=== PATIENT | female | born 1995 | race Caucasian/White ===

== ENCOUNTER 2019-08-12 10:45 | Emergency (ER) | payer OTHER ==
--- NOTE | 2019-08-12 11:01 | EDM.PDOC ---
ED HPI GENERAL MEDICAL PROBLEM - General Chief Complaint: Genitourinary Problem Stated Complaint: POSSIBLE KIDNEY STONE SENT BY YANN Time Seen by Provider: 08/12/19 10:58 Source of Information: Reports: Patient, Old Records, RN Notes Reviewed History Limitations: Reports: No Limitations - History of Present Illness INITIAL COMMENTS - FREE TEXT/NARRATIVE: Patient is a 23-year-old female who presents to the ED today for the evaluation of a left-sided kidney stone. The patient was evaluated in this ER on 08/10/[address] Lawton, and was clinically diagnosed with kidney stones, as she has had similar-like symptoms 1 year prior. The patient states that he sent her home with some pain and antinausea medications, and told her to follow- up with the clinic if not much better. She went to the [facility] her clinic today , as she was not feeling much better. The patient did have some labs done, CBC and CMP and this demonstrated a modestly elevated white count at 12.1 with 77.9 % neutrophils, and an essentially within normal limits metabolic panel, with the exception of her creatinine being elevated at 1.5. The patient states that she is having increased left-sided pain, that is a constant pressure and then has stabbing component to it from time to time. She does not note that she has had an actual fever, but states that she has had hot and cold flashes. She denies any vomiting, but states she is a little bit nauseous. She further denies any dysuria, urinary frequency or urgency, she states she has not been drinking much or eating much as she has not had much of an appetite. Her hCG test done on 08/10 was negative, and she further denies any chance of . The patient states that she took her pain medication this morning, but did not take her nausea medication. She states that the pain medication did not help much. Left Back Pain Score (Numeric/FACES): 9 - Related Data Allergies Allergy/AdvReac Type Severity Reaction Status Date / Time No Known Allergies Allergy Verified 08/10/19 15:44 Home Meds: Home Meds Levothyroxine 150 mcg PO DAILY 08/13/18 [History] Ondansetron [Zofran ODT] 4 mg PO Q6H PRN #12 tab.dis 08/13/18 [Rx] Sertraline [Zoloft] 100 mg PO DAILY 08/13/18 [History] Acetaminophen/oxyCODONE [Percocet 325-5 MG] 5 - 325 mg PO Q4H PRN 08/10/19 [ History] Tamsulosin HCl [Flomax] 0.4 mg PO Q24H #6 cap.er.24h 08/10/19 [Rx] Past Medical History - Past Health History Medical/Surgical History: Denies Medical/Surgical History HEENT History: Reports: Impaired Vision Other HEENT History: wears eyeglasses. Genitourinary History: Reports: Renal Calculus, Other (See Below) Other Genitourinary History: control implant. Psychiatric History: Reports: Anxiety Endocrine/Metabolic History: Reports: Hypothyroidism Dermatologic History: Reports: Psoriasis - Infectious Disease History Infectious Disease History: Reports: Chicken Pox - Past Surgical History HEENT Surgical History: Reports: Adenoidectomy, Tonsillectomy Social & Family History - Tobacco Use Smoking Status *Q: Never Smoker - Caffeine Use Caffeine Use: Reports: Coffee - Recreational Drug Use Recreational Drug Use: No ED ROS GENERAL - Review of Systems Review Of Systems: See Below Constitutional: Reports: Decreased Appetite. Denies: Fever, Chills HEENT: Reports: No Symptoms Respiratory: Denies: Shortness of Breath Cardiovascular: Denies: Chest Pain GI/Abdominal: Reports: Decreased Appetite, Nausea. Denies: Abdominal Pain, Constipation, Diarrhea, Vomiting : Reports: Flank Pain (L). Denies: Dysuria, Frequency, Urgency Musculoskeletal: Reports: No Symptoms Skin: Reports: No Symptoms Neurological: Reports: No Symptoms Psychiatric: Reports: No Symptoms Hematologic/Lymphatic: Reports: No Symptoms Immunologic: Reports: No Symptoms ED EXAM, RENAL/ - Physical Exam Exam: See Below Exam Limited By: No Limitations General Appearance: Alert, WD/WN, No Apparent Distress (Pt appears to be in a moderate amount of pain) Throat/Mouth: Normal Inspection, Normal Lips, Normal Teeth, Normal Gums, Normal Oropharynx, Normal Voice, No Airway Compromise Head: Atraumatic, Normocephalic Neck: Normal Inspection Respiratory/Chest: No Respiratory Distress, Lungs Clear, Normal Breath Sounds, No Accessory Muscle Use, Chest Non-Tender Cardiovascular: Normal Peripheral Pulses, Regular Rate, Rhythm, No Edema, No Murmur GI/Abdominal: Normal Bowel Sounds, Soft, Non-Tender, No Distention, No Mass Back Exam: Normal Inspection, Full Range of Motion. No: CVA Tenderness (L), CVA Tenderness (R) Extremities: Normal Inspection, Normal Capillary Refill Neurological: Alert, Oriented, Normal Cognition, No Motor/Sensory Deficits Psychiatric: Normal Affect, Normal Mood Skin Exam: Warm, Dry, Intact, Normal Color, No Rash Course - Vital Signs Last Recorded V/S: Last Vital Signs Temp 97.1 F 08/12/19 11:00 Pulse 62 08/12/19 11:00 Resp 20 08/12/19 11:00 BP 133/89 08/12/19 11:00 Pulse Ox 99 08/12/19 11:00 - Orders/Labs/Meds Orders: Active Orders 24 hr Category Date Time Status Strain Urine [RC] ASDIRECTED Care 08/12/19 11:07 Active CULTURE URINE [RM] Routine Lab 08/12/19 11:35 Received Sodium Chloride 0.9% [Normal Saline] 1,000 ml Med 08/12/19 11:15 Active IV ASDIRECTED Medication Orders Sodium Chloride (Normal Saline) 1,000 mls @ 150 mls/hr IV ASDIRECTED ANGIE Last Admin: 08/12/19 11:42 Dose: 150 mls/hr Labs: Laboratory Tests 08/12/19 Range/Units 11:35 Urine Color Yellow (Yellow) Urine Appearance Clear (Clear) Urine pH 6.0 (5.0-8.0) Ur Specific [place] 1.015 (1.005-1.030) Urine Protein Negative (Negative) Urine Glucose (UA) Negative (Negative) Urine Ketones 1+ H (Negative) Urine Occult Blood 2+ H (Negative) Urine Nitrite Negative (Negative) Urine Bilirubin Negative (Negative) Urine Urobilinogen 0.2 (0.2-1.0) Ur Leukocyte Esterase Negative (Negative) Urine RBC 10-20 H (0-5) /hpf Urine WBC 0-5 (0-5) /hpf Ur Squamous Epith Cells 0-5 (0-5) /hpf Urine Bacteria Few (FEW) /hpf Urine Mucus Few (FEW) /hpf Meds: Medications Generic Name Dose Route Start Last Admin Trade Name Freq PRN Reason Stop Dose Admin Sodium Chloride 1,000 mls @ 150 mls/hr 08/12/19 11:15 08/12/19 11:42 Normal Saline IV 150 mls/hr ASDIRECTED ANGIE Administration Discontinued Medications Generic Name Dose Route Start Last Admin Trade Name Asad PRN Reason Stop Dose Admin Hydromorphone HCl 1 mg 08/12/19 11:07 08/12/19 11:43 Dilaudid IVPUSH 08/12/19 11:08 1 mg ONETIME STA Administration Hydromorphone HCl 0.5 mg 08/12/19 12:18 08/12/19 12:35 Dilaudid IVPUSH 08/12/19 12:19 0.5 mg ONETIME ONE Administration Hydromorphone HCl 0.5 mg 08/12/19 13:00 08/12/19 13:16 Dilaudid IVPUSH 08/12/19 13:01 0.5 mg ONETIME ONE Administration Sodium Chloride 1,000 mls @ 999 mls/hr 08/12/19 12:50 08/12/19 13:16 Normal Saline IV 08/12/19 13:50 999 mls/hr ONETIME ONE Administration Ondansetron HCl 4 mg 08/12/19 11:07 08/12/19 11:42 Zofran IVPUSH 08/12/19 11:08 4 mg ONETIME ONE Administration Tamsulosin HCl 0.4 mg 08/12/19 11:07 08/12/19 11:43 Flomax PO 08/12/19 11:08 0.4 mg ONETIME STA Administration - Re-Assessments/Exams Free Text/Narrative Re-Assessment/Exam: 08/12/19 11:24 Patient presents to the ED for the evaluation of a left-sided kidney stone. I do believe that she has suffered from kidney stones, I have ordered an abdominal pelvis CT without contrast, UA with culture, some IV fluids, 1 mg Dilaudid and 4 mg Zofran with 0.4 mg Flomax for initial management. 08/12/19 12:11 Patient was assessed at bedside again, states she is having mild amount of pain , will repeat 0.5 mg of Dilaudid, for further pain control, CT report is back and demonstrates a an obstructing proximal left ureteral stone measuring 3.4 mm. Nonobstructing calculi within both kidneys. No other additional abnormality appreciated. I did instruct the nurse to change her fluid rate to wide open, and will likely give her a second liter of fluids, as she states that she has not been eating or drinking much. 08/12/19 13:01 Patient was again reassessed at bedside, and states she is feeling a little bit more comfortable, but is complaining of quite a bit of pain yet. I did order another 0.5mg of Dilaudid for further pain management, and another liter of fluids for management. Departure - Departure Time of Disposition: 14:46 Disposition: Home, Self-Care 01 Condition: Fair Clinical Impression: Kidney stone on left side - Discharge Information *PRESCRIPTION DRUG MONITORING PROGRAM REVIEWED*: Yes *COPY OF PRESCRIPTION DRUG MONITORING REPORT IN PATIENT DI: No Instructions: Kidney Stones, [id number], Low-Purine Eating Plan Referrals: Jigna Victoria MD [Primary Care Provider] - Forms: ED Department Discharge Additional Instructions: You were evaluated in the ER today for your L flank pain. Your urinalysis did demonstrate some blood in urine, which is suggestive of a kidney stone at this time. A CT was done at this ER visit, this demonstrated a kidney stone that is 3.4mm. You have been given a strainer, please use every time you use the bathroom to make sure that the kidney stone has passed. Recommend that you increase your oral fluid intake to try to help the stone pass. You have been given a few tablets of pain medication, please take as prescribed. These medications are highly addictive, please take as few as you need to. These medications also can be somewhat constipating, recommend you take a stool softener like MiraLAX while taking these medications. You should follow-up with your regular doctor on Sunday, if your pain is not much better for a possible urology referral. Please return to the ED if your symptoms change or worsen. - My Orders Last 24 Hours: My Active Orders 08/12/19 11:07 Strain Urine [RC] ASDIRECTED 08/12/19 11:15 Sodium Chloride 0.9% [Normal Saline] 1,000 ml IV ASDIRECTED 08/12/19 11:35 CULTURE URINE [RM] Routine - Assessment/Plan Last 24 Hours: My Active Orders 08/12/19 11:07 Strain Urine [RC] ASDIRECTED 08/12/19 11:15 Sodium Chloride 0.9% [Normal Saline] 1,000 ml IV ASDIRECTED 08/12/19 11:35 CULTURE URINE [RM] Routine
[2019-08-12] MEDS ORDERED: HYDROmorphone 1 MG/ML Syringe IVPUSH STA (11:07)
[2019-08-12] MEDS ORDERED: Tamsulosin 0.4 MG Cap.ER PO STA (11:07)
[2019-08-12] MEDS ORDERED: Ondansetron 4 MG/2 ML SDV IVPUSH ONE (11:07)
[2019-08-12] MEDS ORDERED: Sodium Chloride 0.9% 1,000 ML IV SCH (11:15)
--- NOTE | 2019-08-12 11:58 | CT ---
CT abdomen and pelvis Technique: Multiple axial sections were obtained from above the dome of the diaphragm inferiorly through the pubic symphysis. Intravenous and oral contrast not utilized. Study has been performed as ureteral stone protocol. Comparison: Prior CT abdomen and pelvis exam of 08/13/18. Findings: Nonobstructing calculi are seen within both kidneys. Left ureter is mildly prominent. This finding is caused by an obstructing proximal left ureteral stone measuring 3.4 mm. No other abnormal calcifications are seen along the course of the ureters. Other findings: Visualized lung bases show nothing acute. Noncontrast appearance of the liver and spleen appear within normal limits. Gallbladder contains no calcified gallstones. Adrenal glands show no nodule. Pancreas is within normal limits. Aorta shows no aneurysm. No retroperitoneal adenopathy or mesenteric abnormalities are seen. Appendix not visualized with certainty. No free fluid or inflammatory change is seen. Bone window settings were reviewed which appear within normal limits for the patient's age. Impression: 1. Obstructing proximal left ureteral stone measuring 3.4 mm in approximate size. 2. Nonobstructing calculi within both kidneys. 3. No additional abnormality is appreciated on noncontrast CT study of the abdomen and pelvis. Diagnostic code #3 This report was dictated in [place] Standard Time
[2019-08-12] MEDS ORDERED: HYDROmorphone 0.5 MG/0.5 ML Syringe IVPUSH ONE ×2 (12:18→13:00)
[2019-08-12] MEDS ORDERED: Sodium Chloride 0.9% 1,000 ML IV ONE (12:50)
== END 2019-08-12 15:06 | disposition home or self-care (01) ==
LOC: JD.ED 10:45
DX: N20.2 Calculus of kidney with calculus of ureter (principal); E03.9 Hypothyroidism, unspecified; Z79.890 Hormone replacement therapy
CPT/HCPCS: 74176; 81001; 87086; 96361; 96374; 96375; 96376; 99284; A9270; J1170; J2405; J7040; 99283

== ENCOUNTER 2021-06-18 11:56 | Emergency (ER) | payer OTHER ==
[2021-06-18] MEDS ORDERED: Sodium Chloride 0.9% 10 ML Syringe FLUSH PRN (12:08)
--- NOTE | 2021-06-18 12:22 | EDM.PDOC ---
ED HPI GENERAL MEDICAL PROBLEM - General Chief Complaint: FIELD ACCOUNT DIRECTOR Problem Stated Complaint: 6 WEEKS PREG/BLEEDING AND CRAMPING Time Seen by Provider: 06/18/21 12:05 Source of Information: Reports: Patient, RN Notes Reviewed History Limitations: Reports: No Limitations - History of Present Illness INITIAL COMMENTS - FREE TEXT/NARRATIVE: Patient is a 25-year-old female who presents to the ER for evaluation of her vaginal bleeding/abdominal cramping in early . Patient notes that her last menstrual period was around April 19. She is supposed to see Dr. Marie on July 05 for ongoing OB management. Patient is a . Patient states that yesterday she had developed some low abdominal cramping with a slight amount of vaginal bleeding, when she wiped with the toilet paper. She put a maxi pad in her underwear, but has not soaked through 1 maxi pad yet. She also noted some mucousy type discharge. States she is having some lower abdominal cramping along with some pain in her back. She is denying any urinary symptoms or dysuria frequency urgency. She is having some slight nausea but no vomiting or diarrhea. She is denying any fevers chills, cough or shortness of breath. Lower Back Pain Score (Numeric/FACES): 6 Lower Pelvic Pain Score (Numeric/FACES): 4 - Related Data Allergies Allergy/AdvReac Type Severity Reaction Status Date / Time No Known Allergies Allergy Verified 08/10/19 15:44 Home Meds: Home Meds Levothyroxine 150 mcg PO DAILY 08/13/18 [History] Past Medical History HEENT History: Reports: Impaired Vision Other HEENT History: wears eyeglasses. Genitourinary History: Reports: Renal Calculus Other Genitourinary History: control implant. : 1 Para: 0 Psychiatric History: Reports: Anxiety Endocrine/Metabolic History: Reports: Hypothyroidism, Obesity/BMI 30+ Dermatologic History: Reports: Psoriasis - Infectious Disease History Infectious Disease History: Reports: Chicken Pox - Past Surgical History HEENT Surgical History: Reports: Adenoidectomy, Tonsillectomy Social & Family History - Tobacco Use Tobacco Use Status *Q: Never Tobacco User - Caffeine Use Caffeine Use: Reports: Coffee, Soda, Tea - Recreational Drug Use Recreational Drug Use: No ED ROS GENERAL - Review of Systems Review Of Systems: Comprehensive ROS is negative, except as noted in HPI. ED EXAM - Physical Exam Exam: See Below Exam Limited By: No Limitations General Appearance: Alert, WD/WN, No Apparent Distress Respiratory/Chest: No Respiratory Distress, Lungs Clear, Normal Breath Sounds, No Accessory Muscle Use, Chest Non-Tender Cardiovascular: Normal Peripheral Pulses, Regular Rate, Rhythm GI/Abdominal Exam: Normal Bowel Sounds, Soft, No Distention, No Mass, Tender (very slight tenderness on low pelvis) Heart Tones: Not Delta Movement: Not Appreciated Extremities: Normal Inspection, Normal Capillary Refill Neurological: Alert, Oriented, Normal Cognition, No Motor/Sensory Deficits Psychiatric: Normal Affect, Normal Mood Skin Exam: Warm, Dry, Intact, Normal Color, No Rash Course - Vital Signs Last Recorded V/S: Last Vital Signs Temp 97.3 F 06/18/21 12:13 Pulse 86 06/18/21 12:13 Resp 20 06/18/21 12:13 BP 128/87 06/18/21 12:13 Pulse Ox 100 06/18/21 12:13 - Orders/Labs/Meds Orders: Active Orders 24 hr Category Date Time Status Peripheral IV Care [RC] . DIRECTED Care 06/18/21 12:09 Ordered OB Transvaginal [US] Stat Exams 06/18/21 12:08 Ordered PATIENT RETYPE [BBK] Routine Lab 06/18/21 13:22 Ordered RHOGAM, [RHIG WORKUP, ] [BBK] Stat Lab 06/18/21 14:44 Ordered UA W/MICROSCOPIC [URIN] Stat Lab 06/18/21 12:08 Ordered Sodium Chloride 0.9% [Saline Flush] Med 06/18/21 12:08 Ordered 10 ml FLUSH ASDIRECTED PRN Peripheral IV Insertion Adult [OM.PC] Stat Oth 06/18/21 12:08 Ordered Medication Orders Sodium Chloride (Sodium Chloride 0.9% 10 Ml Syringe) 10 ml FLUSH ASDIRECTED PRN PRN Reason: Keep Vein Open Last Admin: 06/18/21 13:16 Dose: 10 ml Documented by: LUL Labs: Laboratory Tests 06/18/21 06/18/21 06/18/21 Range/Units 12:35 12:35 12:35 WBC 8.81 (3.98-10.04) K/mm3 RBC 4.60 (3.98-5.22) M/mm3 Hgb 12.7 (11.2-15.7) gm/dl Hct 39.6 (34.1-44.9) % MCV 86.1 (79.4-94.8) fl MCH 27.6 (25.6-32.2) pg MCHC 32.1 L (32.2-35.5) g/dl RDW Std Deviation 42.6 (36.4-46.3) fL Plt Count 263 (182-369) K/mm3 MPV 10.2 (9.4-12.3) fl Neut % (Auto) 65.7 (34.0-71.1) % Lymph % (Auto) 24.0 (19.3-51.7) % [place] % (Auto) 8.5 (4.7-12.5) % Eos % (Auto) 1.5 (0.7-5.8) Baso % (Auto) 0.1 (0.1-1.2) % Neut # (Auto) 5.79 (1.56-6.13) K/mm3 Lymph # (Auto) 2.11 (1.18-3.74) K/mm3 [place] # (Auto) 0.75 H (0.24-0.36) K/mm3 Eos # (Auto) 0.13 (0.04-0.36) K/mm3 Baso # (Auto) 0.01 (0.01-0.08) K/mm3 HCG, Quant 2176.0 mIU/mL Blood Type A NEGATIVE Meds: Medications Generic Name Dose Route Start Last Admin Trade Name Freq PRN Reason Stop Dose Admin Sodium Chloride 10 ml 06/18/21 12:08 06/18/21 13:16 Sodium Chloride 0.9% 10 Ml Syringe FLUSH 10 ml ASDIRECTED PRN Administration Keep Vein Open - Re-Assessments/Exams Free Text/Narrative Re-Assessment/Exam: 06/18/21 12:21 Patient presents to the ER for evaluation of her vaginal bleeding and pelvic discomfort in early . We will go ahead and get ultrasound, get some basic labs for evaluation. 06/18/21 13:59 Patient's blood type is A-, CBC is unremarkable, still awaiting hCG quantitative level. The transvaginal ultrasound demonstrates an ovoid gestational sac in the lower endometrial cavity identified with a mean sac diameter of 6 mm no yolk sac is identified at this time a fetus is not identified. The estimated ultrasound age based on the mean sac diameter is 5 weeks and 1 day. Impression states in the setting of vaginal bleeding findings could be due to impending failed first trimester continue follow-up is recommended. 06/18/21 14:52 I did discuss the ultrasound findings and the patient's blood work with Dr. Blue, FIELD ACCOUNT DIRECTOR on-call today. He does recommend giving RhoGam as the patient's blood type is A-. He does think this is very well could be an impending miscarriage, and recommends more of a watchful waiting situation to see if it tries to complete itself over the weekend he does recommend that the patient follow-up with FIELD ACCOUNT DIRECTOR Sunday or Sunday for repeat hCG and ongoing guidance. He does give strict return precautions for vaginal bleeding, which has been relayed to the patient. RhoGam work-up has been ordered. Departure - Departure Time of Disposition: 14:53 Disposition: Home, Self-Care 01 Condition: Fair Clinical Impression: Threatened miscarriage in early - Discharge Information *PRESCRIPTION DRUG MONITORING PROGRAM REVIEWED*: No *COPY OF PRESCRIPTION DRUG MONITORING REPORT IN PATIENT DI: No Instructions: Threatened Miscarriage, [id number] Referrals: Rea Marie MD [Primary Care Provider] - Forms: ED Department Discharge Additional Instructions: You were evaluated in the ER today regarding your abdominal pain/vaginal bleeding in . You did have some labs drawn, and these were within normal limits, your hCG level was 2176 , your blood type is A-. Due to your vaginal bleeding, you were given a dose of RhoGam in this ER visit. For all future pregnancies, you will need RhoGam due to your blood type. Your ultrasound demonstrated a fetus with ultrasound age at 5 weeks 1 day. With the setting of bleeding, findings are thought likely due to the possibility of an impending or threatened miscarriage. No yolk sac was identified at today's visit, and no heartbeat was identified at today's visit. Your case was discussed with Dr. Blue FIELD ACCOUNT DIRECTOR on-call, and he does recommend that you have close follow-up with your FIELD ACCOUNT DIRECTOR, Dr. Marie Sunday or Sunday for repeat hCG testing, and to monitor for increased vaginal bleeding. Recommend that you do not lift anything heavier than a gallon of milk (5 lbs), do not engage in sexual activities, try to get as much pelvic rest as possible for the next few days. Please try not to exert yourself, rest and relax, and take it easy. If you are bleeding through more than 1-2 maxi pads every couple hours, this would be cause for concern to return to the ER for immediate management. Please call Dr. Marie Sunday morning to request an appointment for ongoing management. Please return to the ED at any time if your symptoms change or worsen. Sepsis Event Note (ED) - Focused Exam Vital Signs: Vital Signs Temp Pulse Resp BP Pulse Ox 06/18/21 12:13 97.3 F 86 20 128/87 100 - My Orders Last 24 Hours: My Active Orders 06/18/21 12:08 OB Transvaginal [US] Stat UA W/MICROSCOPIC [URIN] Stat Sodium Chloride 0.9% [Saline Flush] 10 ml FLUSH ASDIRECTED PRN Peripheral IV Insertion Adult [OM.PC] Stat 06/18/21 12:09 Peripheral IV Care [RC] . DIRECTED 06/18/21 13:22 PATIENT RETYPE [BBK] Routine 06/18/21 14:44 RHOGAM, [RHIG WORKUP, ] [BBK] Stat - Assessment/Plan Last 24 Hours: My Active Orders 06/18/21 12:08 OB Transvaginal [US] Stat UA W/MICROSCOPIC [URIN] Stat Sodium Chloride 0.9% [Saline Flush] 10 ml FLUSH ASDIRECTED PRN Peripheral IV Insertion Adult [OM.PC] Stat 06/18/21 12:09 Peripheral IV Care [RC] . DIRECTED 06/18/21 13:22 PATIENT RETYPE [BBK] Routine 06/18/21 14:44 RHOGAM, [RHIG WORKUP, ] [BBK] Stat
[2021-06-18] MEDS ORDERED: Ondansetron 4 MG Tab.DIS PO ONE (15:42)
[2021-06-18] MEDS ORDERED: Ondansetron 4 MG Tab.DIS ONE (15:42)
--- NOTE | 2021-06-19 08:45 | US ---
First trimester obstetrical ultrasound: Multiple real-time images were obtained transvaginally. Comparison: No prior ultrasound is available. Minimal ovoid area is seen within the lower uterine segment measuring 6 mm in mean sac diameter which correlates to a mean gestational age of 5 weeks 1 day. No yolk sac or pole is seen. Ovaries appear within normal limits. No adnexal abnormalities are seen. Impression: 1. Findings suspicious for impending miscarriage. If patient remains symptomatic, follow-up ultrasound could then be considered. Diagnostic code #3 I agree with preliminary report from [facility], finalized on 06/19/21, 2:54 PM CDT
== END 2021-06-18 15:30 | disposition home or self-care (01) ==
LOC: JD.ED 11:56
DX: O20.0 Threatened abortion (principal); O99.281 Endocrine, nutritional and metabolic diseases complicating pregnancy, first trimester; E03.9 Hypothyroidism, unspecified; O99.211 Obesity complicating pregnancy, first trimester; Z68.41 Body mass index [BMI] 40.0-44.9, adult; Z79.899 Other long term (current) drug therapy; Z3A.01 Less than 8 weeks gestation of pregnancy
CPT/HCPCS: 36415; 76817; 76817-26; 81001; 84702; 85025; 87086; 99284-25; J2790

== ENCOUNTER 2021-10-01 04:11 | Emergency (ER) | payer OTHER ==
[2021-10-01] MEDS ORDERED: Lactated Ringers 1,000 ML IV ONE ×2 (04:41→06:07)
[2021-10-01] MEDS ORDERED: Ondansetron 4 MG/2 ML SDV IVPUSH ONE ×2 (04:41→06:25)
[2021-10-01] MEDS ORDERED: Acetaminophen 325 MG Tab PO ONE (04:42)
[2021-10-01] MEDS ORDERED: Morphine 4 MG/ML Syringe IVPUSH ONE ×2 (05:39→06:25)
== END 2021-10-01 09:30 | disposition home or self-care (01) ==
LOC: JD.ED 04:11
DX: O99.891 Other specified diseases and conditions complicating pregnancy (principal); N23 Unspecified renal colic; O99.281 Endocrine, nutritional and metabolic diseases complicating pregnancy, first trimester; E03.9 Hypothyroidism, unspecified; O99.211 Obesity complicating pregnancy, first trimester; E66.9 Obesity, unspecified; Z87.442 Personal history of urinary calculi; Z79.899 Other long term (current) drug therapy; Z3A.11 11 weeks gestation of pregnancy
CPT/HCPCS: 36415; 80053; 81001; 85025; 87086; 96374; 96375; 96376; 99284; A9270; J2270; J2405; J7120

== ENCOUNTER 2021-10-03 12:53 | Emergency (ER) | payer OTHER ==
[2021-10-03] MEDS ORDERED: HYDROmorphone 0.5 MG/0.5 ML Syringe IVPUSH ONE (15:01)
[2021-10-03] MEDS ORDERED: Metoclopramide 10 MG/2 ML SDV IVPUSH ONE (15:01)
[2021-10-03] MEDS ORDERED: Sodium Chloride 0.9% 1,000 ML IV ONE (15:14)
== END 2021-10-03 16:00 | disposition home or self-care (01) ==
LOC: JD.ED 12:53
DX: O99.891 Other specified diseases and conditions complicating pregnancy (principal); N20.0 Calculus of kidney; O99.281 Endocrine, nutritional and metabolic diseases complicating pregnancy, first trimester; E03.9 Hypothyroidism, unspecified; O99.211 Obesity complicating pregnancy, first trimester; E66.9 Obesity, unspecified; Z79.899 Other long term (current) drug therapy; Z3A.11 11 weeks gestation of pregnancy
CPT/HCPCS: 96374; 96375; 99283; J1170; J2765; J7030

== ENCOUNTER 2022-04-17 10:38 | Inpatient (IN) | payer OTHER ==
[~2022-04-17 10:38] MED LIST: Bupivacaine 0.25% 10 ML SDV ONE
[2022-04-17] MEDS ORDERED: Ondansetron 4 MG/2 ML SDV IVPUSH PRN (12:00)
[2022-04-17] MEDS ORDERED: Nalbuphine HCl 10 MG/ 1ML Amp IVPUSH PRN (12:00)
[2022-04-17] MEDS ORDERED: Ampicillin 2 GM in Sodium Chloride 0.9% 100 ML IV ONE (12:00)
[2022-04-17] MEDS ORDERED: Sodium Chloride 0.9% 10 ML Syringe FLUSH PRN (12:00)
[2022-04-17] MEDS ORDERED: Oxytocin/Lactated Ringers 10 UNIT/1,000 ML BAG IV SCH ×2 (12:00→12:15)
[2022-04-17] MEDS: Lactated Ringers 1,000 ML IV SCH ×2 (13:58→21:13)
[2022-04-17] MEDS ORDERED: diphenhydrAMINE 50 MG/ML SDV IVPUSH PRN (16:03)
[2022-04-17] MEDS ORDERED: Bupivacaine/fentaNYL/NS 100 ML Bag EPIDUR PRN (16:03)
[2022-04-17] MEDS ORDERED: ePHEDrine 50 MG/ML SDV IVPUSH PRN (16:03)
[2022-04-17] MEDS ORDERED: fentaNYL 100 MCG/2 ML SDV EPIDUR PRN (16:03)
[2022-04-17] MEDS: Ampicillin 1 GM in Sodium Chloride 0.9% 100 ML IV SCH ×2 (18:26→21:49)
[2022-04-17] MEDS ORDERED: Sodium Chloride 0.9% 10 ML Syringe FLUSH SCH (21:00)
[2022-04-18] MEDS: Lactated Ringers 1,000 ML IV SCH (02:09)
[2022-04-18] MEDS: Ampicillin 1 GM in Sodium Chloride 0.9% 100 ML IV SCH (02:10)
[2022-04-18] MEDS ORDERED: Calcium Carbonate 500 MG Tab.Chew PO PRN ×2 (02:20→21:39)
[2022-04-18] MEDS ORDERED: Levothyroxine 100 MCG Tab PO SCH ×2 (06:00→21:30)
[2022-04-18] MEDS ORDERED: Docusate Sodium 100 MG Cap PO PRN (06:30)
[2022-04-18] MEDS ORDERED: Benzocaine/Menthol 20%-0.5% Spray 78 GM Cannister TOP PRN (06:30)
[2022-04-18] MEDS ORDERED: Acetaminophen 325 MG Tab PO PRN (06:30)
[2022-04-18] MEDS: Witch Hazel Medicated Pads 40/Jar TOP PRN (08:46)
[2022-04-18] MEDS ORDERED: Sertraline 50 MG Tab PO SCH ×2 (09:00→21:00)
[2022-04-18] MEDS: Ibuprofen 600 MG Tab PO PRN (15:11)
[2022-04-19] MEDS ORDERED: Measles, Mumps & Rubella Vaccine 0.5 ML SDV SUBCUT ONE (05:04)
[2022-04-19] MEDS: Ibuprofen 600 MG Tab PO PRN (05:16)
[2022-04-19] MEDS: Witch Hazel Medicated Pads 40/Jar TOP PRN (12:00)
== END 2022-04-19 16:30 | disposition home or self-care (01) | DRG 807 ==
LOC: JD.OBCHECK 10:38 → JD.OB 10:42 → OBSVTOIN 12:00 → JD.OBCHECK 12:00 → JD.OB 12:00
PROVIDERS: ADMIT Obstetrics & Gynecology; ATTEND Obstetrics & Gynecology
PROC: 10E0XZZ Delivery of Products of Conception, External Approach (ICD-10-PCS; principal; 2022-04-17)
PROC: 0KQM0ZZ Repair Perineum Muscle, Open Approach (ICD-10-PCS; 2022-04-17)
DX: O99.284 Endocrine, nutritional and metabolic diseases complicating childbirth (principal); Z37.0 Single live birth; E03.9 Hypothyroidism, unspecified; O99.344 Other mental disorders complicating childbirth; F41.9 Anxiety disorder, unspecified; O99.824 Streptococcus B carrier state complicating childbirth; O70.1 Second degree perineal laceration during delivery; O69.81X0 Labor and delivery complicated by cord around neck, without compression, not applicable or unspecified; Z3A.39 39 weeks gestation of pregnancy
CPT/HCPCS: 36415; 51702; 51798; 59025; 59409; 82565; 82570; 84112; 84156; 84450; 84460; 85027; 85461; 86592; 86850; 86900; 86901; 90707; A9270-GY; J0290; J2405; J2590; J2790; J3010; J3490; J7120

== ENCOUNTER 2024-08-25 04:41 | Inpatient (IN) | payer OTHER ==
[~2024-08-25 04:41] MED LIST changes: -Bupivacaine 0.25% 10 ML SDV ONE; +Lidocaine 1% 10 ML MDV ONE; +Ropivacaine 0.2% PF 2 MG/ML 20 ML SDV ONE
[2024-08-25] MEDS ORDERED: Nalbuphine 10 MG/1 ML Vial IVPUSH PRN (05:47)
[2024-08-25] MEDS ORDERED: Ondansetron 4 MG/2 ML SDV IVPUSH PRN (05:47)
[2024-08-25] MEDS ORDERED: Sodium Chloride 0.9% 10 ML Syringe FLUSH PRN (05:47)
[2024-08-25] MEDS ORDERED: Lidocaine 1% 50 ML MDV INJECT PRN (05:47)
[2024-08-25] MEDS: Ampicillin 2 GM in Sodium Chloride 0.9% 100 ML IV ONE (05:59)
[2024-08-25] MEDS: Lactated Ringers 1,000 ML IV SCH (05:59)
[2024-08-25 06:07] LABS: BASOPHILS PERCENT AUTO 0.2 % (0.0-1.0); EOSINOPHILS ABSOLUTE AUTO 0.1 K/mm3 (0.0-0.4); EOSINOPHILS PERCENT AUTO 0.6 % (0.0-6.0); HEMATOCRIT 36.4 % (37.0-47.0); HEMOGLOBIN 11.8 gm/dl (12.0-16.0); IMMATURE GRAN ABSOLUTE AUTO 0.07 K/mm3 (0.00-0.05); IMMATURE GRAN PERCENT AUTO 0.5 % (0.0-0.4); LYMPHOCYTES ABSOLUTE AUTO 2.2 K/mm3 (1.0-4.8); LYMPHOCYTES PERCENT AUTO 16.5 % (24.0-44.0); MEAN CORPUSCULAR HEMOGLOBIN 27.8 pg (28.0-32.0); MEAN CORPUSCULAR HGB CONC 32.4 g/dl (32.0-36.0); MEAN CORPUSCULAR VOLUME 85.8 fl (83.0-99.0); MEAN PLATELET VOLUME 11.3 fl (9.4-12.3); MONOCYTES PERCENT AUTO 7.3 % (0.0-8.0); NEUTROPHILS ABSOLUTE AUTO 9.8 K/mm3 (1.8-7.7); NEUTROPHILS PERCENT AUTO 74.9 % (41.0-71.0); PLATELET COUNT,PLT 195 K/mm3 (150-400); RED BLOOD CELL COUNT 4.24 M/mm3 (4.10-5.30); WHITE BLOOD CELL COUNT,WBC 13.02 K/mm3 (3.9-11.3)
[2024-08-25] MEDS: Ondansetron 4 MG/2 ML SDV IVPUSH ONE (06:07)
[2024-08-25 06:24] LABS: CREATININE 0.7 mg/dL (0.55-1.02); EST CRCL DRUG DOSING (CG) 108.63 mL/min
[2024-08-25] MEDS ORDERED: diphenhydrAMINE 50 MG/ML SDV IVPUSH PRN (06:59)
[2024-08-25] MEDS ORDERED: ePHEDrine 50 MG/ML SDV IVPUSH PRN (06:59)
[2024-08-25 07:02] LABS: PROTEIN,URINE RANDOM 22.9 mg/dL (0.0-11.8)
[2024-08-25 07:06] LABS: URIC ACID 3.7 mg/dL (2.6-6.0)
[2024-08-25] MEDS: Bupivacaine/fentaNYL/NS 100 ML Bag EPIDUR PRN (07:06)
[2024-08-25] MEDS: fentaNYL 100 MCG/2 ML SDV EPIDUR PRN (07:06)
[2024-08-25] MEDS: Oxytocin/0.9 % Sodium Chloride 30 UNIT/500 ML BAG IV SCH (09:14)
[2024-08-25] MEDS ORDERED: Acetaminophen 325 MG Tab PO PRN (11:04)
[2024-08-25] MEDS ORDERED: Docusate Sodium 100 MG Cap PO PRN (11:04)
[2024-08-25] MEDS: Witch Hazel Medicated Pads 40/Jar TOP PRN (12:30)
[2024-08-25] MEDS: Benzocaine/Menthol 20%-0.5% Spray 78 GM Cannister TOP PRN (12:30)
[2024-08-25] MEDS: Ampicillin 1 GM in Sodium Chloride 0.9% 50 ML IV SCH (14:34)
[2024-08-25] MEDS: Ibuprofen 600 MG Tab PO SCH (14:34)
[2024-08-26] MEDS: Loperamide 2 MG Cap PO PRN (05:55)
[2024-08-26] MEDS: Levothyroxine 100 MCG Tab PO SCH (09:15)
[2024-08-26] MEDS: Sertraline 50 MG Tab PO SCH (09:15)
== END 2024-08-27 11:22 | disposition home or self-care (01) | DRG 807 ==
LOC: JD.OBCHECK 04:41 → JD.OB 04:44 → JD.OBCHECK 06:00 → JD.OB 06:01 → OBSVTOIN 09:09 → JD.OB 09:10
PROVIDERS: ADMIT Obstetrics & Gynecology; ATTEND Obstetrics & Gynecology
PROC: 10E0XZZ Delivery of Products of Conception, External Approach (ICD-10-PCS; principal; 2024-08-25)
DX: O99.824 Streptococcus B carrier state complicating childbirth (principal); Z37.0 Single live birth; O26.893 Other specified pregnancy related conditions, third trimester; Z67.11 Type A blood, Rh negative; Z3A.39 39 weeks gestation of pregnancy
CPT/HCPCS: 01967; 36415; 51701; 59025; 59409; 82565; 82570; 83615; 84156; 84450; 84460; 84520; 84550; 85025; 86592; A9270-GY; J0290; J2405; J2795; J3010; J3490; J7120; J7999